=== PATIENT | female | born 1955 | race Caucasian/White ===

== ENCOUNTER → 2017-01-28 | Outpatient (REF) | payer OTHER | LOC: M LAB REF 11:44 | PROVIDERS: ATTEND Physician Assistant | DX: R30.0 Dysuria (principal) ==

== ENCOUNTER → 2017-02-22 | Outpatient (REF) | payer OTHER | LOC: M LAB REF 12:47 | PROVIDERS: ATTEND Internal Medicine | DX: R74.8 Abnormal levels of other serum enzymes (principal) ==

== ENCOUNTER → 2017-02-27 | Outpatient (REF) | payer OTHER | LOC: M LAB REF 16:43 | PROVIDERS: ATTEND Physician Assistant | DX: R35.0 Frequency of micturition (principal) ==

== ENCOUNTER → 2017-04-11 | Outpatient (REF) | payer OTHER ==
[2017-04-12 13:49] LABS: PERCENT SATURATION 32.1 % (13.2-37.4)
== END ==
LOC: M LAB REF 17:40
PROVIDERS: ATTEND Internal Medicine
DX: M25.561 Pain in right knee (principal); D64.9 Anemia, unspecified

== ENCOUNTER → 2017-10-19 | Outpatient (REF) | payer OTHER ==
[2017-10-19 18:44] LABS: VITAMIN B12 LEVEL 489 PG/ML (247-911)
== END ==
LOC: M LAB REF 15:59
DX: G50.0 Trigeminal neuralgia (principal); R53.81 Other malaise

== ENCOUNTER → 2017-10-25 | Outpatient (CLI) | payer OTHER, BC ==
[2017-10-25 16:36] LABS: INR 1.06; PARTIAL THROMBOPLASTIN TIME 27.2 SECONDS (26.8-37.9); PROTHROMBIN TIME 13.9 SECONDS (12.4-14.5)
[2017-10-25 16:51] LABS: ALBUMIN 3.9 GM/DL (3.2-5.2); ALKALINE PHOSPHATASE 123 U/L (45-117); ALT/SGPT 22 U/L (12-78); AST/SGOT 18 U/L (7-37); BILIRUBIN,DIRECT 0.1 MG/DL (0.0-0.2); BILIRUBIN,TOTAL 0.3 MG/DL (0.2-1.0); FERRITIN 51 NG/ML (8-252); IRON (FE) 67 UG/DL (50-170); PERCENT SATURATION 22.3 % (13.2-45.0); TOTAL IRON BINDING CAPACITY 301 UG/DL (250-450); TOTAL PROTEIN 6.9 GM/DL (6.4-8.2)
[2017-10-25 19:06] LABS: ALPHA FETOPROTEIN TUMOR QUANT 4.6 NG/ML (<8.1)
[2017-10-26 11:47] LABS: HEPATITIS B SURFACE ANTIGEN NEGATIVE (NEGATIVE)
[2017-10-26 11:55] LABS: HEPATITIS C VIRUS ABY INDEX < 0.0 INDEX (<0.8)
[2017-10-26 11:56] LABS: HEPATITIS A ANTIBODY IGM NEGATIVE (NEGATIVE)
[2017-10-26 12:05] LABS: HEPATITIS B SURFACE ANTIBODY NEGATIVE (POSITIVE)
[2017-10-27 10:39] LABS: ALBUMIN 4.02 GM/DL (3.29-5.55); ALBUMIN % 58.3 % (55.8-66.1); ALPHA-1-GLOBULIN % 4.6 % (2.9-4.9); ALPHA-1-GLOBULINS 0.32 GM/DL (0.17-0.41); ALPHA-2-GLOBULINS 0.85 GM/DL (0.42-0.99); ALPHA-2-GLOBULINS % 12.3 % (7.1-11.8); BETA-1-GLOBULINS 0.43 GM/DL (0.28-0.60); BETA-1-GLOBULINS % 6.3 % (4.7-7.2); BETA-2-GLOBULINS 0.35 GM/DL (0.19-0.55); BETA-2-GLOBULINS % 5.1 % (3.2-6.5); GAMMA GLOBULIN % 13.4 % (11.1-18.8); GAMMA GLOBULINS 0.92 GM/DL (0.65-1.58)
[2017-10-28 00:09] LABS: ANTI-SMOOTH MUSCLE ANTIBODY 7 Units (0-19)
[2017-10-28 00:09] LABS: ALPHA 1 ANTITRYPSIN 148 mg/dL (90-200); ANTI-MITOCHONDRIAL ANTIBODY 2.3 Units (0.0-20.0); ANTINUCLEAR ANTIBODIES DIRECT Negative (Negative); CERULOPLASMIN 29.2 mg/dL (19.0-39.0); HEPATITIS A IgG TOTAL Negative (Negative); LIVER-KIDNEY MICROSOMAL ABY 0.6 Units (0.0-20.0); TISSUE TRANSGLUTAMINASE IgG <2 U/mL (0-5)
== END ==
LOC: M LAB 15:05
DX: K14.6 Glossodynia (principal); R10.13 Epigastric pain; K21.9 Gastro-esophageal reflux disease without esophagitis
CPT/HCPCS: 83550

== ENCOUNTER 2018-01-23 07:20 | Outpatient (CLI) | payer OTHER, BC | END 2018-01-26 | LOC: M RAD 07:20 | DX: F45.8 Other somatoform disorders (principal); K21.9 Gastro-esophageal reflux disease without esophagitis; R10.9 Unspecified abdominal pain | CPT/HCPCS: 78264 ==

== ENCOUNTER → 2018-02-01 | Outpatient (REF) | payer OTHER, BC | LOC: M LAB REF 17:31 | DX: R10.30 Lower abdominal pain, unspecified (principal) ==

== ENCOUNTER → 2019-03-01 | Outpatient (REF) | payer MEDICARE, OTHER ==
[2019-03-02 10:09] LABS: PERCENT SATURATION 27.5 % (13.2-45.0)
== END ==
LOC: M LAB REF 16:55
PROVIDERS: ATTEND Internal Medicine
DX: K21.9 Gastro-esophageal reflux disease without esophagitis (principal); K31.84 Gastroparesis

== ENCOUNTER → 2019-04-04 | Outpatient (CLI) | payer OTHER, MEDICARE ==
--- NOTE | 2019-04-04 11:01 | REP ---
NUCLEAR GASTRIC EMPTYING SCAN: Following the oral administration of 1.0 millicuries technetium 99m sulfur colloid in two scrambled eggs and 6 ounces of water, multiple images are obtained of the upper abdomen in anterior and posterior projections. The images are obtained for 90 minutes. Gastric activity is measured. At the end of 90 minutes 46% of the ingested activity has emptied from the stomach. T-1/2 is calculated to be 107 minutes. The normal t-1/2 is 90 minutes. IMPRESSION: Slightly delayed gastric emptying. Electronically Signed by Darren Whittaker MD 04/04/2019 04:22 P
== END ==
LOC: M RAD 08:34
PROVIDERS: ATTEND Internal Medicine Gastroenterology
DX: K31.84 Gastroparesis (principal); K59.00 Constipation, unspecified; E55.9 Vitamin D deficiency, unspecified
CPT/HCPCS: 78264; A9541

== ENCOUNTER 2019-05-14 22:08 | Emergency (ER) | payer MEDICARE, OTHER ==
[~2019-05-14] VITALS: Ht 149.9 cm; Wt 81.8 kg
[2019-05-14] MEDS ORDERED: RANI150T14 (22:19)
[2019-05-14] MEDS ORDERED: BACL10TA2 (22:19)
[2019-05-14] MEDS ORDERED: LANS30CA93 (22:19)
[2019-05-14 22:44] LABS: HEMATOCRIT 36.2 % (36.0-47.0); MEAN CORPUSCULAR HEMOGLOBIN 29.6 pg (27.0-33.0); MEAN CORPUSCULAR HGB CONC 33.1 g/dl (32.0-36.5); MEAN CORPUSCULAR VOLUME 89.4 fl (80.0-96.0); PLATELET COUNT, AUTOMATED 240 10^3/uL (150-450); RED BLOOD COUNT 4.05 10^6/uL (4.00-5.40); WHITE BLOOD COUNT 9.4 10^3/uL (4.0-10.0)
[2019-05-14] MEDS ORDERED: NS 1,000 ML IV ONE (23:15)
[2019-05-14] MEDS ORDERED: ONDANSETRON 4MG/2ML VIAL (J2405) IV ONE (23:15)
[2019-05-14 23:16] LABS: ALBUMIN 3.7 GM/DL (3.2-5.2); ALT/SGPT 21 U/L (12-78); BILIRUBIN,TOTAL 0.2 MG/DL (0.2-1.0); BLOOD UREA NITROGEN 27 MG/DL (7-18); CALCIUM LEVEL 9.2 MG/DL (8.8-10.2); CARBON DIOXIDE LEVEL 26 MEQ/L (21-32); CHLORIDE LEVEL 110 MEQ/L (98-107); CK-MB VALUE MASS 1.2 NG/ML (<3.6); CPK CREATINE PHOSPHOKINASE 73 U/L (26-192); GLOMERULAR FILTRATION RATE 43.8 (>45); GLUCOSE, FASTING 124 MG/DL (70-100); LIPASE 175 U/L (73-393); MB/CK RELATIVE INDEX 1.64 (< OR =4); POTASSIUM SERUM 4.3 MEQ/L (3.5-5.1); SODIUM LEVEL 144 MEQ/L (136-145); TROPONIN I < 0.02 NG/ML (< 0.10)
[2019-05-14] MEDS ORDERED: KETOROLAC 30 MG/ML VIAL (J1885) IV ONE (23:30)
--- NOTE | 2019-05-15 00:35 | REPVR ---
EXAM: CT Abdomen and Pelvis Without Contrast EXAM DATE/TIME: 05/14/2019 11:09 PM CLINICAL HISTORY: 63 years old, female; Abdominal pain; Flank; Left; Additional info: Left flank pain TECHNIQUE: Imaging protocol: Axial computed tomography images of the abdomen and pelvis without contrast. Coronal and sagittal reformatted images were created and reviewed. Radiation optimization: All CT scans at this facility use at least one of these dose optimization techniques: automated exposure control; mA and/or kV adjustment per patient size (includes targeted exams where dose is matched to clinical indication); or iterative reconstruction. COMPARISON: NM-Gastric Emptying Study 04/04/2019 8:39 AM FINDINGS: Evaluation is limited due to quantum mottle artifact secondary to patient body habitus. Liver: No discreet mass. Gallbladder and bile ducts: A few ill-defined hyperdensities within the gallbladder may represent calculi versus sludge. No appreciable biliary ductal dilatation. Pancreas: No ductal dilation. Spleen: No splenomegaly. Adrenals: No mass. Kidneys and ureters: Approximately 3 mm left ureterovesicular junction calculus with minimal/mild left hydroureteronephrosis and perinephric inflammatory change. A few additional tiny nonobstructing calculi are seen scattered throughout the left kidney. Stomach and bowel: No evidence of obstruction. Appendix: No evidence of appendicitis. Intraperitoneal space: No free air. No significant fluid collection. Vasculature: No abdominal aortic aneurysm. Lymph nodes: No enlarged lymph nodes. Bladder: Unremarkable as visualized. Reproductive: Unremarkable as visualized. Bones/joints: No grossly displaced fractures or dislocations. Soft tissues: Tiny fat-containing umbilical hernia. IMPRESSION: Approximately 3 mm left ureterovesicular junction calculus causing minimal/mild left hydroureteronephrosis and perinephric inflammatory change. Other ancillary findings as above. Electronically signed by: Tawanda Tobin On 05/15/2019 00:35:25 AM
[2019-05-15] MEDS ORDERED: FLOM0.4C39 PO (01:09)
[2019-05-15] MEDS ORDERED: NAPR-885 PO (01:09)
[2019-05-15] MEDS ORDERED: ONDA4TAB6 PO (01:12)
[2019-05-15] MEDS ORDERED: PERCOCET 5MG/325MG TAB PO ONE (01:15)
[2019-05-15 01:37] VITALS: BP 187/68
--- NOTE | 2019-05-15 07:24 | ECGEPIP ---
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
--- NOTE | 2019-05-15 09:18 | REP ---
Chest x-ray: Two views. History: Left upper back pain. Comparison study: December 27, 2010. Findings: The lungs are well inflated and clear. The pleural angles are sharp. Heart size is normal. The aorta slightly tortuous. There are degenerative changes in the thoracic spine. Impression: No active disease. Electronically Signed by Marito Batres MD 05/15/2019 09:10 A
== END 2019-05-15 01:42 | disposition home or self-care (01) ==
LOC: M ED 22:08
DX: N20.0 Calculus of kidney (principal); I45.19 Other right bundle-branch block; K31.84 Gastroparesis; M48.061 Spinal stenosis, lumbar region without neurogenic claudication; G50.0 Trigeminal neuralgia; Z79.899 Other long term (current) drug therapy; Z88.8 Allergy status to other drugs, medicaments and biological substances
CPT/HCPCS: 71046; 74176; 80053; 81001; 82550; 82553; 83690; 84484; 85027; 87086; 93005; 96374; 96375; 99284; J1885; J2405

== ENCOUNTER → 2019-05-15 | Outpatient (REF) | payer MEDICARE, OTHER ==
[~2019-05-15] MED LIST: BACL10TA2; FLOM0.4C39 PO; LANS30CA93; NAPR-885 PO; ONDA4TAB6 PO; RANI150T14
== END ==
LOC: M LAB REF 13:17
PROVIDERS: ATTEND Internal Medicine
DX: N13.2 Hydronephrosis with renal and ureteral calculous obstruction (principal)

== ENCOUNTER → 2019-05-25 | Outpatient (REF) | payer MEDICARE, OTHER | LOC: M LAB REF 12:31 | PROVIDERS: ATTEND Internal Medicine | DX: N76.0 Acute vaginitis (principal) ==

== ENCOUNTER → 2019-06-11 | Outpatient (REF) | payer MEDICARE, OTHER ==
[2019-06-12 14:23] LABS: PERCENT SATURATION 26.3 % (13.2-45.0)
== END ==
LOC: M LAB REF 13:55
PROVIDERS: ATTEND Internal Medicine
DX: D64.9 Anemia, unspecified (principal)

== ENCOUNTER → 2020-05-27 | Outpatient (REF) | payer MEDICARE, OTHER | LOC: M LAB REF 12:15 | PROVIDERS: ATTEND Internal Medicine | DX: M25.50 Pain in unspecified joint (principal) ==

== ENCOUNTER → 2020-08-07 | Outpatient (CLI) | payer MEDICARE, OTHER ==
--- NOTE | 2020-08-07 09:47 | REP ---
INDICATION: BORORYGMI, BLOATING MAIN REG. COMPARISON: 06/16/2006. TECHNIQUE: Real-time sonographic evaluation of right upper quadrant performed. FINDINGS: Gallbladder is filled with calculi, and is contracted. The inner wall of the gallbladder is not well defined and therefore gallbladder wall thickness is difficult to measure. There is no intrahepatic or extrahepatic biliary dilatation, common bile duct measures 6 mm in maximum diameter. The liver demonstrates a small echogenic nodule in the right lobe measuring 9 mm in diameter, likely benign, and likely representing a hemangioma. Pancreas is obscured by overlying bowel gas. The right kidney demonstrates no hydronephrosis, with a normal size of 10.3 cm in length. A cystic structure in the upper pole the right kidney measures 1.3 x 0.9 x 1.5 cm. Low-level echoes are seen within the cyst which appears mildly complex. No free fluid is seen. IMPRESSION: Contracted gallbladder filled with calculi. No biliary dilatation or free fluid. Subcentimeter hyperechoic nodule right lobe of the liver likely representing a small hemangioma. Mildly complex cyst upper pole right kidney. <Electronically signed by Darren Whittaker > 08/07/20 [id number]
== END ==
LOC: M RAD 08:32
PROVIDERS: ATTEND Internal Medicine Gastroenterology
DX: R10.9 Unspecified abdominal pain (principal)

== ENCOUNTER → 2020-08-18 | Outpatient (CLI) | payer MEDICARE, OTHER ==
--- NOTE | 2020-08-18 16:02 | REP ---
INDICATION: BORBORYGMI. COMPARISON: None TECHNIQUE: After the intravenous administration of 6.6 mCi of technetium 99 M Choletec hepatobiliary imaging was performed with gallbladder ejection fraction calculation. FINDINGS: There is symmetric diffuse distribution of the radiotracer throughout the hepatocytes. The gallbladder is promptly visualized at 25 minutes. There is normal reflux of the radiotracer in the small bowel. The gallbladder ejection fraction calculation is 55%. This is within the normal range. IMPRESSION: Findings are within normal limits. <Electronically signed by Johnathon Abreu > 08/18/20 [id number]
== END ==
LOC: M RAD 10:39
PROVIDERS: ATTEND Internal Medicine Gastroenterology
DX: K80.20 Calculus of gallbladder without cholecystitis without obstruction (principal); K31.84 Gastroparesis; K14.6 Glossodynia; K59.00 Constipation, unspecified; R13.10 Dysphagia, unspecified; R11.0 Nausea; R14.0 Abdominal distension (gaseous); R19.15 Other abnormal bowel sounds
CPT/HCPCS: 78227; A9537

== ENCOUNTER → 2022-09-10 | Outpatient (REF) | payer MEDICARE, OTHER | LOC: M PLALAB 10:27 | PROVIDERS: ATTEND Nurse Practitioner Family | DX: N76.0 Acute vaginitis (principal) ==

== ENCOUNTER 2022-10-02 05:49 | Emergency (ER) | payer MEDICARE, OTHER ==
[~2022-10-02] VITALS: Ht 152.4 cm; Wt 94.9 kg
[2022-10-02 05:50] VITALS: BP 143/88
[2022-10-02 06:46] LABS: APPEARANCE, URINE MANUAL HAZY (CLEAR); COLOR, URINE MANUAL YELLOW (YELLOW)
[2022-10-02 06:48] LABS: BILIRUBIN, URINE MANUAL NEGATIVE (NEGATIVE); BLOOD URINE MANUAL POSITIVE (NEGATIVE); GLUCOSE, URINE (UA) MANUAL NEGATIVE (NEGATIVE); KETONE, URINE MANUAL NEGATIVE (NEGATIVE); LEUKOCYTE ESTERASE, URINE MAN POSITIVE (NEGATIVE); NITRITE, URINE MANUAL POSITIVE (NEGATIVE); PROTEIN, URINE MANUAL TRACE mg/dL (NEGATIVE); UROBILINOGEN, URINE MANUAL NORMAL (NORMAL)
[2022-10-02 07:00] LABS: RBC, URINE TNTC /hpf (0-3); WBC, URINE TNTC /hpf (0-3)
[2022-10-02 07:02] LABS: BACTERIA, URINE MOD AMOUNT; HYALINE CAST, URINE 0-1 /lpf (0-1); MUCUS, URINE SMALL AMOUNT (NEGATIVE); SQUAMOUS EPITHELIAL CELL URINE SMALL AMOUNT /hpf (SMALL AMT)
[2022-10-02] MEDS ORDERED: NITR1CAP11 PO (07:33)
[2022-10-02] MEDS ORDERED: AMLO2.5T3 (08:06)
== END 2022-10-02 08:15 | disposition home or self-care (01) ==
LOC: M ED 05:49
DX: N39.0 Urinary tract infection, site not specified (principal); I10 Essential (primary) hypertension; Z79.899 Other long term (current) drug therapy; Z88.8 Allergy status to other drugs, medicaments and biological substances

== ENCOUNTER → 2022-10-13 | Outpatient (REF) | payer MEDICARE, OTHER ==
[~2022-10-13] MED LIST changes: +AMLO2.5T3; +NITR1CAP11 PO
== END ==
LOC: M PLALAB 06:47
PROVIDERS: ATTEND Nurse Practitioner Family
DX: Z53.9 Procedure and treatment not carried out, unspecified reason (principal)

== ENCOUNTER → 2022-11-04 | Outpatient (REF) | payer MEDICARE, OTHER | LOC: M LAB REF 16:18 | PROVIDERS: ATTEND Internal Medicine | DX: N39.0 Urinary tract infection, site not specified (principal) ==

== ENCOUNTER → 2022-11-15 | Outpatient (CLI) | payer MEDICARE, OTHER | LOC: M WHC 08:10 | PROVIDERS: ATTEND Nurse Practitioner Family | DX: R10.2 Pelvic and perineal pain (principal); Z90.722 Acquired absence of ovaries, bilateral ==

== ENCOUNTER → 2023-05-24 | Outpatient (CLI) | payer MEDICARE, OTHER | LOC: M WUC 11:17 | PROVIDERS: ATTEND Nurse Practitioner Family | DX: M25.532 Pain in left wrist (principal) ==

== ENCOUNTER → 2023-09-13 | Outpatient (REF) | payer MEDICARE, OTHER | LOC: M LAB REF 16:16 | PROVIDERS: ATTEND Internal Medicine | DX: M25.50 Pain in unspecified joint (principal) ==

== ENCOUNTER → 2023-10-20 | Outpatient (CLI) | payer MEDICARE, OTHER | LOC: M SOG 14:46 | PROVIDERS: ATTEND Orthopaedic Surgery Hand Surgery | DX: M25.532 Pain in left wrist (principal); Z53.9 Procedure and treatment not carried out, unspecified reason ==

== ENCOUNTER 2023-12-08 14:12 | Emergency (ER) | payer MEDICARE, OTHER ==
[~2023-12-08] VITALS: Ht 152.4 cm; Wt 96.6 kg
[2023-12-08 15:13] LABS: BASO # 0.1 10^3/uL (0.0-0.2); BASO % 0.9 % (0.0-1.0); EOS # 0.1 10^3/uL (0.0-0.5); EOS % 0.7 % (0.0-3.0); HEMATOCRIT 39.1 % (36.0-47.0); HEMOGLOBIN 12.9 g/dl (12.0-15.5); LYMPH # 2.3 10^3/uL (1.5-5.0); LYMPH % 30.4 % (24.0-44.0); MEAN CORPUSCULAR HEMOGLOBIN 28.8 pg (27.0-33.0); MEAN CORPUSCULAR VOLUME 87.3 fl (80.0-96.0); MONO # 0.6 10^3/uL (0.0-0.8); MONO % 7.2 % (2.0-8.0); NEUTROPHILS # 4.7 10^3/uL (1.5-8.5); NEUTROPHILS % 60.5 % (36.0-66.0); PLATELET COUNT, AUTOMATED 267 10^3/uL (150-450); RED BLOOD COUNT 4.48 10^6/uL (4.00-5.40); WHITE BLOOD COUNT 7.7 10^3/uL (4.0-10.0)
[2023-12-08 15:25] LABS: INR 0.99; PROTHROMBIN TIME 12.8 SECONDS (12.5-14.5)
[2023-12-08 15:36] LABS: LIPASE 42 U/L (12-53)
[2023-12-08 15:38] LABS: ALBUMIN 3.8 G/DL (3.2-5.2); ALKALINE PHOSPHATASE 113 U/L (46-116); ALT/SGPT 18 U/L (7.0-40); AST/SGOT 16 U/L (<34); BILIRUBIN,DIRECT < 0.1 MG/DL (<0.4); BILIRUBIN,TOTAL 0.3 MG/DL (0.3-1.2); BLOOD UREA NITROGEN 21 MG/DL (9-23); CALCIUM LEVEL 8.6 MG/DL (8.3-10.6); CARBON DIOXIDE LEVEL 28 MMOL/L (20-31); CHLORIDE LEVEL 107 MMOL/L (98-107); CK-MB VALUE MASS < 1.0 NG/ML (<3.6); CPK CREATINE PHOSPHOKINASE 70 U/L (34-145); CREATININE FOR GFR 1.13 MG/DL (0.55-1.30); GLOMERULAR FILTRATION RATE 50.7 (>39); GLUCOSE, FASTING 95 MG/DL (74-106); MB/CK RELATIVE INDEX 1.42 (< OR =4); POTASSIUM SERUM 4.2 MMOL/L (3.5-5.1); SODIUM LEVEL 138 MMOL/L (136-145); TOTAL PROTEIN 6.8 G/DL (5.7-8.2)
[2023-12-08] MEDS: ACETAMINOPHEN TAB 650MG DOSE (2X325MG) PO ONE (16:47)
[2023-12-08] MEDS: diphenhydrAMINE 25MG CAP PO ONE (16:47)
[2023-12-08] MEDS ORDERED: ISOVUE-370 76% 100ML VIAL As Ordered ONE (17:39)
[2023-12-08 18:09] LABS: CK-MB VALUE MASS < 1.0 NG/ML (<3.6); CPK CREATINE PHOSPHOKINASE 68 U/L (34-145); MB/CK RELATIVE INDEX 1.47 (< OR =4)
[2023-12-08] MEDS ORDERED: PEPC1TAB5 PO (19:15)
[2023-12-08 19:25] VITALS: BP 168/94; TEMP 97.5; O2SAT 98
== END 2023-12-08 19:26 | disposition home or self-care (01) ==
LOC: M ED 14:12
DX: K29.70 Gastritis, unspecified, without bleeding (principal); R91.1 Solitary pulmonary nodule; N28.1 Cyst of kidney, acquired; I10 Essential (primary) hypertension; E78.5 Hyperlipidemia, unspecified; K21.9 Gastro-esophageal reflux disease without esophagitis; Z79.899 Other long term (current) drug therapy; Z88.8 Allergy status to other drugs, medicaments and biological substances
CPT/HCPCS: 71045; 71275; 74177; 80048; 80076; 82550; 82553; 83690; 84484; 85025; 85610; 93005; 99284; Q9967

== ENCOUNTER → 2024-03-12 | Outpatient (CLI) | payer MEDICARE, OTHER ==
[~2024-03-12] MED LIST changes: +NITR100C3 PO; -NITR1CAP11 PO; +ONDA-282 PO; -ONDA4TAB6 PO; +PEPC1TAB5 PO
== END ==
LOC: M PLAIMG 09:20
PROVIDERS: ATTEND Internal Medicine
DX: R91.8 Other nonspecific abnormal finding of lung field (principal)

== ENCOUNTER → 2024-06-30 | Outpatient (REF) | payer MEDICARE, OTHER | LOC: M LAB REF 10:41 | PROVIDERS: ATTEND Physician Assistant Medical | DX: N39.0 Urinary tract infection, site not specified (principal) ==

== ENCOUNTER → 2024-07-23 | Outpatient (REF) | payer MEDICARE, OTHER | LOC: M SFHCWAGY 16:56 | PROVIDERS: ATTEND Nurse Practitioner Family | DX: N73.9 Female pelvic inflammatory disease, unspecified (principal) ==

== ENCOUNTER → 2024-12-12 | Outpatient (CLI) | payer MEDICARE, OTHER | LOC: M PLAIMG 10:00 | PROVIDERS: ATTEND Internal Medicine | DX: R91.8 Other nonspecific abnormal finding of lung field (principal); I71.20 Thoracic aortic aneurysm, without rupture, unspecified ==

== ENCOUNTER 2024-12-24 14:24 | Outpatient (CLI) | payer MEDICARE, OTHER ==
[~2024-12-24] VITALS: Ht 149.9 cm; Wt 98.0 kg
[2024-12-24 14:40] VITALS: BP 142/80; O2SAT 99
[2024-12-24] MEDS: ZOLEDRONIC ACID 5 MG in IV 1 EA IV ONE (14:45)
[2024-12-24 15:47] VITALS: BP 141/89; O2SAT 97
== END 2024-12-24 15:50 ==
LOC: M INFU 14:24
PROVIDERS: ATTEND Internal Medicine
DX: M81.0 Age-related osteoporosis without current pathological fracture (principal); Z88.8 Allergy status to other drugs, medicaments and biological substances
CPT/HCPCS: 96413; J3489

== ENCOUNTER → 2025-04-26 | Outpatient (REF) | payer MEDICARE, OTHER ==
[~2025-04-26] MED LIST changes: -FLOM0.4C39 PO; +TAMS-18 PO
== END ==
LOC: M SFHCWAGY 12:51
PROVIDERS: ATTEND Nurse Practitioner Family
DX: N89.8 Other specified noninflammatory disorders of vagina (principal)

== ENCOUNTER → 2025-05-24 | Outpatient (REF) | payer MEDICARE, OTHER | LOC: M SFHCWAGY 14:58 | PROVIDERS: ATTEND Nurse Practitioner Family | DX: N89.8 Other specified noninflammatory disorders of vagina (principal) ==

== ENCOUNTER → 2025-05-31 | Outpatient (CLI) | payer MEDICARE, OTHER ==
[2025-05-31 17:13] LABS: PLATELET COUNT, AUTOMATED 293 10^3/uL (150-450)
[2025-05-31 17:28] LABS: INR 0.9
== END ==
LOC: M LAB 16:47
PROVIDERS: ATTEND Physician Assistant
DX: R94.5 Abnormal results of liver function studies (principal)

== ENCOUNTER → 2025-06-19 | Outpatient (CLI) | payer MEDICARE, OTHER | LOC: M PLAIMG 07:58 | PROVIDERS: ATTEND Internal Medicine | DX: R91.1 Solitary pulmonary nodule (principal) ==